=== PATIENT | female | born 2000 | race Two or more races ===

== ENCOUNTER 2022-12-19 22:55 | Emergency (ER) | payer OTHER ==
[~2022-12-19] VITALS: Ht 154.9 cm; Wt 63.5 kg
[2022-12-19] MEDS ORDERED: LEVOTHYROXINE25 MCG PO (23:16)
[2022-12-19] MEDS ORDERED: BUSPIRONE HCL7.5 MG PO (23:16)
== END 2022-12-20 03:43 | disposition home or self-care (01) ==
LOC: ER 22:55
DX: K52.89 Other specified noninfective gastroenteritis and colitis (principal)